=== PATIENT | female | born 1965 | race Caucasian/White ===

== ENCOUNTER 2023-02-15 16:23 | Outpatient (CLI) | payer OTHER, SELFPAY ==
--- NOTE | ~2023-02-15 | MR_ITS ---
MRI of the right wrist Technique: Coronal T1 weighted and proton density fat sat images, and axial and sagittal proton-densi ty and proton-density fat-sat images were acquired. Clinical History: Lunatomalacia Findings: There is diffuse T1 hypointensity of the lunate bone, with heterogeneous hyperintense T2 si gnal. No definite collapse of the lunate bone seen. There is orthopedic hardware within the capitate, related to presumed prior fixation. There is minimal amorphous reactive marrow edema in the scaphoid and triquetrum. Small radiocarpal joint effusion present. Scapholunate ligament and lunotriquetral ligament appear intact. No definite full-thickness perforati on of the TFCC identified. Flexor tendons and carpal tunnel are unremarkable. Extensor tendons are unremarkable. There is a 1.1 cm ganglion cyst extending volar from the triquetral pisiform articulation. IMPRESSION: Avascular necrosis of the lunate, with diffuse T1 hypointensity, but no etelvina collapse of the lunate. Presumed prior ORIF of capitate fracture. Correlate with surgical history. 1.1 cm ganglion cyst extending volar from the triquetral pisiform articulation. Reviewed, dictated and finalized at [facility]. IMPRESSION: Avascular necrosis of the lunate, with diffuse T1 hypointensity, but no etelvina c ollapse of the lunate. Presumed prior ORIF of capitate fracture. Correlate with surgical history. 1.1 cm ganglion cyst extending volar from the triquetral pisiform articulation.
== END 2023-02-15 16:24 ==
LOC: MICIMG 16:25
DX: M92.211 Osteochondrosis (juvenile) of carpal lunate [Kienbock], right hand (principal); M67.431 Ganglion, right wrist
CPT/HCPCS: 73221